=== PATIENT | male | born 1965 | race Caucasian/White ===

== ENCOUNTER → 2017-02-27 | Outpatient (CLI) | payer MEDICAID | END | disposition home or self-care (01) | LOC: RADPV 10:33 | PROVIDERS: ATTEND Orthopaedic Surgery | DX: S52.202E Unspecified fracture of shaft of left ulna, subsequent encounter for open fracture type I or II with routine healing (principal); S52.302E Unspecified fracture of shaft of left radius, subsequent encounter for open fracture type I or II with routine healing; X58.XXXD Exposure to other specified factors, subsequent encounter ==